=== PATIENT | female | born 1940 | race Asian ===

== ENCOUNTER → 2017-08-21 | Outpatient (CLI) | payer OTHER, MEDICAID | LOC: FIMAGING 08:28 | PROVIDERS: ATTEND Family Medicine | DX: G31.9 Degenerative disease of nervous system, unspecified (principal); R94.02 Abnormal brain scan; M48.02 Spinal stenosis, cervical region; R41.3 Other amnesia; F03.90 Unspecified dementia, unspecified severity, without behavioral disturbance, psychotic disturbance, mood disturbance, and anxiety ==

== ENCOUNTER 2017-10-18 09:58 | Observation (INO) | payer OTHER, MEDICAID ==
--- NOTE | 2017-10-18 10:16 | EDPHY ---
H & P Time Seen by Provider: 10/18/17 10:01 HPI/ROS: CHIEF COMPLAINT: Wrist pain, syncope HISTORY OF PRESENT ILLNESS: Patient sent from Dr. Cintron's office after 2 syncopal episodes in his office. Patient was at the office to have an evaluation of her left calf pain. She has had pain there for approximately 1 week. She recently started Aricept and Dr. Cintron thought that it may be side effect of the medication but was going to do an ultrasound to rule out DVT. While patient was waiting for orders to be placed she went to the bathroom and after urinating, she got dizzy, lightheaded and had syncopal episode in the bathroom injuring her right wrist. Dr. Cintron did go to her aid and when she was being helped up she had another syncopal episode and was described as being "out"for 15-20 seconds. On my evaluation patient states that she has right wrist pain. She denies numbness or tingling distally. Onset of pain was immediately after her fall. She also has left calf pain that has been present for approximately 1 week. It is diffuse to the posterior left calf. Mild in nature but persistent. She denies injury to the left calf. She has had no recent travel. She denies chest pain, shortness of breath, dizziness currently. She has no headache. She has had no recent illnesses. She denies urinary symptoms, nausea, vomiting , diarrhea or abdominal pain. She denies other injuries from the fall. REVIEW OF SYSTEMS: Constitutional: No fever, no chills. Eyes: No discharge. ENT: No sore throat. Cardiovascular: No chest pain, no palpitations. Respiratory: No cough, no shortness of breath. Gastrointestinal: No abdominal pain, no vomiting. Genitourinary: No dysuria. Musculoskeletal: No back pain. Skin: No rashes. Neurological: No headache. General Appearance: Alert, no distress. Eyes: Pupils equal and round no pallor or injection. ENT, Mouth: Mucous membranes moist. Respiratory: There are no retractions, lungs are clear to auscultation. Cardiovascular: Regular rate and rhythm. Gastrointestinal: Abdomen is soft and nontender, no masses, bowel sounds normal. Neurological: Awake, alert, oriented to self, place, month. At baseline. No focal neurologic deficits. Skin: Warm and dry, no rashes. Musculoskeletal: Neck is supple nontender. No tenderness to palpation along T , L, S spine. Right wrist with deformity, swelling, distal intact. Range of motion limited by pain. Left calf with mild tenderness to palpation posteriorly , no edema no erythema. Psychiatric: Patient is oriented X 3, there is no agitation. Medical/surgical history: History of diabetes type 2, hepatitis-C, hypothyroidism, dementia, vitamin B12 deficiency. Social history: No smoking, alcohol, drugs. Originally from [place], speaks Yemeni, Cantonese. Constitutional: Initial Vital Signs Temperature (C) 36.6 C 10/18/17 10:09 Heart Rate 52 L 10/18/17 10:09 Respiratory Rate 18 10/18/17 10:09 Blood Pressure 111/56 L 10/18/17 10:09 O2 Sat (%) 99 10/18/17 10:09 O2 Delivery Mode Room Air Allergies/Adverse Reactions: No Known Allergies Allergy (Unverified 10/18/17 10:09) Medical Decision Making - Diagnostics EKG Interpretation: EKG shows sinus rhythm with a first-degree AV block and a rate of 52. No acute ST-T changes to suggest ischemia or infarct. See trace master. Imaging Results: Imaging Impressions Chest X-Ray 10/18/17 10:11 Impression: Clear lungs. No acute process. Wrist X-Ray 10/18/17 10:12 Impression: Comminuted Colles' fracture with dorsal angulation. Imaging: I viewed and interpreted images myself ED Course/Re-evaluation: 11:03 Discussed with MELANIE Sinha, for hospitalist service. 11:27 a.m. D-dimer back at 0.571, less than age adjusted cut off for further thromboembolic imaging. 11:[address] Roc Landry, trauma Services, alerted to the patient needing brief eval in the emergency department prior to admission. 12:[address] Keven To, ED physician, pending transfer through emergency department for trauma eval. 12:[address] Quan, orthopedics. Differential Diagnosis: Differential diagnosis for syncope includes arrhythmia, dehydration, acute coronary syndrome, hypoglycemia, vertigo, other cardiopulmonary cause. After evaluation unclear cause of her syncope and patient will be admitted for further evaluation. No evidence of acute coronary syndrome, ST-elevation NC, troponin leak. D-dimer testing performed and her level was below age related cut off for positivity. TSH pending. Patient also with right wrist fracture, likely surgical, discussed with Orthopedics and they will see patient at [facility] during her admission. Splinted in the emergency department. I personally supervised splinting. Hemodynamically stable for transfer to [facility]. - Data Points Laboratory Results: Laboratory Results 10/18/17 10:20 10/18/17 10/18/17 10/18/17 10:28 10:28 10:21 WBC RBC Hgb Hct MCV MCH MCHC RDW Plt Count MPV Neut % (Auto) Lymph % (Auto) [place] % (Auto) Eos % (Auto) Baso % (Auto) Nucleat RBC Rel Count Absolute Neuts (auto) Absolute Lymphs (auto) Absolute Monos (auto) Absolute Eos (auto) Absolute Basos (auto) Absolute Nucleated RBC Immature Gran % Immature Gran # Smear Review By POC Sodium 136 mEq/L mEq/L (135-145) POC Potassium 4.3 mEq/L mEq/L (3.3-5.0) POC Chloride 106.0 mEq/L mEq/L (97-110) POC Total CO2 28 mEq/L mEq/L (22-31) POC BUN 13 mg/dL mg/dL (7-23) POC Creatinine 0.6 mg/dL mg/dL (0.6-1.0) POC Glucose 179 mg/dL H mg/dL 174 mg/dL H mg/dL (70-100) (70-100) POC Calcium 9.4 mg/dL mg/dL (8.5-10.4) POC Total Bilirubin 0.7 mg/dL mg/dL (0.1-1.4) POC AST 29 IU/L IU/L (14-46) POC ALT 20 IU/L IU/L (9-52) POC Alk Phosphatase 54 IU/L IU/L (38-126) POC Troponin I 0.00 ng/mL ng/mL (0.00-0.08) POC Total Protein 7.3 g/dL g/dL (6.3-8.2) POC Albumin 3.8 g/dL g/dL (3.5-5.0) TSH 10/18/17 10/18/17 10:20 10:20 WBC 5.57 10^3/uL 10^3/uL (3.80-9.50) RBC 5.48 10^6/uL H 10^6/uL (4.18-5.33) Hgb 11.6 g/dL L g/dL (12.6-16.3) Hct 37.1 % L % (38.0-47.0) MCV 67.7 fL L fL (81.5-99.8) MCH 21.2 pg L pg (27.9-34.1) MCHC 31.3 g/dL L g/dL (32.4-36.7) RDW 14.6 % % (11.5-15.2) Plt Count 159 10^3/uL 10^3/uL (150-400) MPV TNP Neut % (Auto) 45.3 % % (39.3-74.2) Lymph % (Auto) 43.8 % % (15.0-45.0) Treut[place] % (Auto) 7.4 % % (4.5-13.0) Eos % (Auto) 2.7 % % (0.6-7.6) Baso % (Auto) 0.4 % % (0.3-1.7) Nucleat RBC Rel Count 0.0 % % (0.0-0.2) Absolute Neuts (auto) 2.53 10^3/uL 10^3/uL (1.70-6.50) Absolute Lymphs (auto) 2.44 10^3/uL 10^3/uL (1.00-3.00) Absolute Monos (auto) 0.41 10^3/uL 10^3/uL (0.30-0.80) Absolute Eos (auto) 0.15 10^3/uL 10^3/uL (0.03-0.40) Absolute Basos (auto) 0.02 10^3/uL 10^3/uL (0.02-0.10) Absolute Nucleated RBC 0.00 10^3/uL 10^3/uL (0-0.01) Immature Gran % 0.4 % % (0.0-1.1) Immature Gran # 0.02 10^3/uL 10^3/uL (0.00-0.10) Smear Review By Pending POC Sodium POC Potassium POC Chloride POC Total CO2 POC BUN POC Creatinine POC Glucose POC Calcium POC Total Bilirubin POC AST POC ALT POC Alk Phosphatase POC Troponin I POC Total Protein POC Albumin TSH Pending Medications Given: Discontinued Medications Fentanyl (Sublimaze) 50 mcg IVP EDNOW ONE Stop: 10/18/17 11:10 Last Admin: 10/18/17 11:11 Dose: 50 mcg Sodium Chloride (Ns) 500 mls @ 0 mls/hr IV EDNOW ONE; Wide Open PRN Reason: Protocol Stop: 10/18/17 11:10 Last Admin: 10/18/17 11:11 Dose: 500 mls Point of Care Test Results: Chemistry 10/18/17 10/18/17 10/18/17 10:28 10:28 10:21 POC Sodium 136 mEq/L mEq/L (135-145) POC Potassium 4.3 mEq/L mEq/L (3.3-5.0) POC Chloride 106.0 mEq/L mEq/L (97-110) POC Total CO2 28 mEq/L mEq/L (22-31) POC BUN 13 mg/dL mg/dL (7-23) POC Creatinine 0.6 mg/dL mg/dL (0.6-1.0) POC Glucose 179 mg/dL H mg/dL 174 mg/dL H mg/dL (70-100) (70-100) POC Calcium 9.4 mg/dL mg/dL (8.5-10.4) POC Total Bilirubin 0.7 mg/dL mg/dL (0.1-1.4) POC AST 29 IU/L IU/L (14-46) POC ALT 20 IU/L IU/L (9-52) POC Alk Phosphatase 54 IU/L IU/L (38-126) POC Troponin I 0.00 ng/mL ng/mL (0.00-0.08) POC Total Protein 7.3 g/dL g/dL (6.3-8.2) POC Albumin 3.8 g/dL g/dL (3.5-5.0) D-Dimer D-Dimer Collection Date 10/18/17 D-Dimer Collection Time 10:25 D-Dimer (ng/ml) 571 Departure - Departure
--- NOTE | 2017-10-18 10:23 | CPEKG ---
Heart Rate: 52 RR Interval: 1154 P-R Interval: 212 QRSD Interval: 84 QT Interval: 468 QTC Interval: 436 P Hudson: 54 QRS Hudson: 31 T Wave Hudson: 45 EKG Severity - ABNORMAL ECG - EKG Impression: SINUS RHYTHM EKG Impression: CONSIDER LEFT VENTRICULAR HYPERTROPHY EKG Impression: ANTERIOR Q WAVES, POSSIBLY DUE TO LVH Electronically Signed By: Shayla Fields 18-Oct-2017 15:02:12
[2017-10-18] MEDS ORDERED: fentaNYL 100 MCG/2 ML INJ IVP ONE (11:09)
[2017-10-18] MEDS ORDERED: NS 500 ML IV ONE (11:09)
[2017-10-18 12:00] LABS: PLATELET COUNT 159 10^3/uL (150-400)
[2017-10-18] MEDS ORDERED: fentaNYL 100 MCG/2 ML INJ ONE (13:00)
[2017-10-18] MEDS ORDERED: PROMETHAZINE HCL 25 MG/ML INJ IVP PRN (17:06)
[2017-10-18] MEDS ORDERED: ONDANSETRON DISINTEGRATING 4 MG TAB PO PRN (17:06)
[2017-10-18] MEDS ORDERED: oxyCODONE IR 5 MG TAB PO PRN (17:06)
[2017-10-18] MEDS ORDERED: PROMETHAZINE HCL 25 MG TAB PO PRN (17:06)
[2017-10-18] MEDS ORDERED: ONDANSETRON 4 MG/2 ML VIAL IVP PRN (17:06)
[2017-10-18] MEDS ORDERED: ACETAMINOPHEN 325 MG TAB PO PRN (17:06)
[2017-10-18] MEDS ORDERED: D5W 1/2 NS W/ 20 KCl/L 1,000 ML IV SCH (17:15)
[2017-10-18] MEDS ORDERED: PRAVASTATIN SODIUM 20 MG TAB PO SCH (18:00)
--- NOTE | 2017-10-18 18:11 | PDGENHP ---
History and Physical - Chief Complaint Acute syncope - History of Present Illness PCP: Dr. Cintron HPI: 77 yo F p/w acute syncope characterized as unresponsiveness, limp appearance w/ onset of symptoms after the patient had some associated dizziness upon standing s/p urinating, resulting in witnessed fall, trauma to RUE outstretched arm, and a duration of 15-20 seconds of unresponsiveness/limp. The symptoms occurred in the context of the patient seen her primary care provider for evaluation of pain located in her left calf, with onset of that symptom approximately 1 week ago and duration persistent thereafter. The patient did not experience any trauma to her left lower extremity, and she reports that the pain has been escalating over this interval at home. She denies taking any medications to treat the pain, and after she had been seen by her primary care provider, a lower extremity ultrasound has been ordered, and the patient went to go use the restroom. After the patient use the restroom and she stood up to leave the restroom, she experienced the aforementioned syncopal episode. The patient denies any precipitating palpitations or chest pain, and her daughter reports that she has not had any syncopal episodes for the past 2 years. Approximately 2 years ago she did have 1 syncopal episode which occurred while she was eating, and did not recur. She otherwise denies any infectious symptoms at this time. History Information - Allergies/Home Medication List Allergies/Adverse Reactions: No Known Allergies Allergy (Verified 10/18/17 13:30) Home Medications: Acetaminophen [Tylenol 325mg (*)] 325 mg PO Q6HRS PRN 10/18/17 [Last Taken Unknown] C/E/Zn/Cu/OM3/DHA/EPA/LUT/ZEAX [Preservision Areds 2 Softgel] 1 each PO DAILY [Last Taken Unknown] Cyanocobalamin [Vitamin B12 (*)] 1,000 mcg PO DAILY 10/18/17 [Last Taken Unknown ] Donepezil HCl [Aricept 5 MG (*)] 10 mg PO HS 10/18/17 [Last Taken 10/16/17] Lisinopril [Zestril 10 mg (*)] 10 mg PO DAILY 10/18/17 [Last Taken 10/18/17] Simvastatin [Zocor] 10 mg PO DAILY18 10/18/17 [Last Taken 10/17/17] glipiZIDE [Glipizide] 5 mg PO BIDMEAL 10/18/17 [Last Taken 10/17/17 18:00] metFORMIN HCL [Glucophage 500 mg (*)] 500 mg PO BIDMEAL 10/18/17 [Last Taken 18:00] I have personally reviewed and updated: family history, medical history, social history, surgical history - Past Medical History diabetes type 2 (Last hemoglobin A1c 7.1%) Additional medical history: Hypothyroidism with TSH 2.5 in July of 2017. Dementia. Previous syncopal episode 2016 - Surgical History Reports: no pertinent surgical hx - Family History Additional family history: No recent sick family contacts - Social History Smoking Status: Never smoked Alcohol Use: None Drug Use: None Additional social history: Independent ADLs comma reportedly active physical baseline, lives with daughter Review of Systems Review of Systems: ROS: 10pt was reviewed & negative except for what was stated in HPI & below Muscolosketal: Reports: other (Right wrist pain) Neurological: Reports: other (Syncope) Physical Exam Physical Exam: Temp Pulse Resp BP Pulse Ox 36.2 C 63 14 155/82 H 97 10/18/17 15:32 10/18/17 17:30 10/18/17 15:32 10/18/17 17:30 10/18/17 15:32 Constitutional: no apparent distress, appears nourished, not in pain Eyes: PERRL, anicteric sclera, EOMI Ears, Nose, Mouth, Throat: moist mucous membranes, hearing normal, ears appear normal, no oral mucosal ulcers Cardiovascular: regular rate and rhythym, no murmur, rub, or gallop, other (Cap refill in her distal right fingers is 1 sec), No edema Respiratory: no respiratory distress, no rales or rhonchi, clear to auscultation Gastrointestinal: normoactive bowel sounds, soft, non-tender abdomen, no palpable masses Genitourinary: no bladder fullness, no bladder tenderness Musculoskeletal: other (No tenderness over the right shoulder in the posterior shoulder or right sub acromioclavicular joint) Neurologic: AAOx3, sensation intact bilaterally (Distal right fingers), No weakness (Full movement in distal right fingers) Psychiatric: interacting appropriately, not anxious, not encephalopathic, thought process linear Lab Data & Imaging Review 10/18/17 10:20 WBC 5.57 10^3/uL (3.80-9.50) 10/18/17 10:20 RBC 5.48 10^6/uL (4.18-5.33) H 10/18/17 10:20 Hgb 11.6 g/dL (12.6-16.3) L 10/18/17 10:20 Hct 37.1 % (38.0-47.0) L 10/18/17 10:20 MCV 67.7 fL (81.5-99.8) L 10/18/17 10:20 MCH 21.2 pg (27.9-34.1) L 10/18/17 10:20 MCHC 31.3 g/dL (32.4-36.7) L 10/18/17 10:20 RDW 14.6 % (11.5-15.2) 10/18/17 10:20 Plt Count 159 10^3/uL (150-400) 10/18/17 10:20 MPV TNP 10/18/17 10:20 Neut % (Auto) 45.3 % (39.3-74.2) 10/18/17 10:20 Lymph % (Auto) 43.8 % (15.0-45.0) 10/18/17 10:20 Camp % (Auto) 7.4 % (4.5-13.0) 10/18/17 10:20 Eos % (Auto) 2.7 % (0.6-7.6) 10/18/17 10:20 Baso % (Auto) 0.4 % (0.3-1.7) 10/18/17 10:20 Nucleat RBC Rel Count 0.0 % (0.0-0.2) 10/18/17 10:20 Absolute Neuts (auto) 2.53 10^3/uL (1.70-6.50) 10/18/17 10:20 Absolute Lymphs (auto) 2.44 10^3/uL (1.00-3.00) 10/18/17 10:20 Absolute Monos (auto) 0.41 10^3/uL (0.30-0.80) 10/18/17 10:20 Absolute Eos (auto) 0.15 10^3/uL (0.03-0.40) 10/18/17 10:20 Absolute Basos (auto) 0.02 10^3/uL (0.02-0.10) 10/18/17 10:20 Absolute Nucleated RBC 0.00 10^3/uL (0-0.01) 10/18/17 10:20 Immature Gran % 0.4 % (0.0-1.1) 10/18/17 10:20 Immature Gran # 0.02 10^3/uL (0.00-0.10) 10/18/17 10:20 Platelet Estimate ADEQUATE (ADEQ) 10/18/17 10:20 Microcytic Cells 1+ H 10/18/17 10:20 Elliptocytes 1+ H 10/18/17 10:20 Schistocytes 2+ H 10/18/17 10:20 POC Sodium 136 mEq/L (135-145) 10/18/17 10:28 POC Potassium 4.3 mEq/L (3.3-5.0) 10/18/17 10:28 POC Chloride 106.0 mEq/L (97-110) 10/18/17 10:28 POC Total CO2 28 mEq/L (22-31) 10/18/17 10:28 POC BUN 13 mg/dL (7-23) 10/18/17 10:28 POC Creatinine 0.6 mg/dL (0.6-1.0) 10/18/17 10:28 POC Glucose 132 mg/dL (70-100) H 10/18/17 17:34 POC Calcium 9.4 mg/dL (8.5-10.4) 10/18/17 10:28 POC Total Bilirubin 0.7 mg/dL (0.1-1.4) 10/18/17 10:28 POC AST 29 IU/L (14-46) 10/18/17 10:28 POC ALT 20 IU/L (9-52) 10/18/17 10:28 POC Alk Phosphatase 54 IU/L (38-126) 10/18/17 10:28 POC Troponin I 0.00 ng/mL (0.00-0.08) 10/18/17 10:28 POC Total Protein 7.3 g/dL (6.3-8.2) 10/18/17 10:28 POC Albumin 3.8 g/dL (3.5-5.0) 10/18/17 10:28 TSH 14.300 uIU/mL (0.465-4.680) H 10/18/17 10:20 Visualized and Interpreted Chest x-ray results: Yes Chest X-Ray results: no infiltrate Visualized and Interpreted EKG results: Yes EKG Interpretation: Positive for: other (Normal sinus rhythm with Q-wave in lead 3, LVH, poor R-wave progression in lead V2) Assessment & Plan Assessment: 77-year-old female presents with acute syncope resulting in traumatic right wrist fracture Plan: 1. Syncope. Acute, new problem this provider, further workup indicated. Suspect this occurred secondary to a vasovagal episode in the setting of low- grade weakness from under treated hypothyroidism -given her age and upcoming surgery, check echocardiogram, carotid ultrasounds, monitor on telemetry overnight -given her unilateral calf tenderness, check D-dimer to rule out DVT, repeat troponin level -get orthostatics -get PT and OT assessments to assure she will be safe for discharge home tomorrow 2. Hypothyroidism. Chronic, last TSH was 08/06/2017 and was 2.5, per daughter, the patient was on levothyroxine at that time, the daughter believe she is still taking it in the morning on an empty stomach but review of her home medications demonstrates no evidence of levothyroxine -initiate 75 mcg daily, recommend repeating TSH level in 4-6 weeks -this should not delay of preclude surgery 3. Right wrist fracture. X-ray demonstrates a comminuted Colles fracture with dorsal angulation -discussed with Dr. Dm Quan, he reports to me that the patient should be taken to surgery in 1 week after swelling subsides -patient's RCRI score is 0, conferring a 0.5% perioperative cardiovascular risk for morbidity or mortality, rendering patient low cardiovascular risk for intermediate orthopedic risk surgery -continue splint -continue pain medication 4. Dementia. Chronic encephalopathy, reviewed outside records including 2017 brain MRI read by Dr. Bobby Kumar, reports temporal lobe atrophy, and calcification versus small hemorrhage in the right temporal area with some cervical stenosis -I doubt that the patient's underlying dementia or cervical stenosis played a role in her fall but the patient was recently initiated on Aricept and her primary care provider has decided to discontinue Aricept as a possible contributing medication to her syncope 5. Diabetes. Controlled on oral medications, continue Diet. Diabetic Prophylaxis. Moderate risk patient, Lovenox 40 Code. Full, daughter is MD POA Disposition. Anticipated discharge 10/19, pending further workup as outlined above.
[2017-10-18] MEDS: metFORMIN HCL 500 MG TAB PO SCH (18:17)
[2017-10-18] MEDS: glipiZIDE 5 MG TAB PO SCH (18:17)
[2017-10-19 05:36] LABS: PLATELET COUNT 157 10^3/uL (150-400)
[2017-10-19] MEDS ORDERED: LEVOTHYROXINE 75 MCG TAB PO SCH (06:00)
--- NOTE | 2017-10-19 06:02 | SOAPPROG ---
SOAP Progress Note Assessment/Plan: Assessment: 77 female with multiple syncopal episodes this time sustaining rt wrist fx no other injuries heent - cor rr chest clear and nontender extrem ok neuro physiologic imp: major issue is syncope, incidental wrist fx Plan:ortho consult/ admit to medicine for syncope work up 10/19/17 05:58 Objective: Vital Signs Temp Pulse Resp BP Pulse Ox 36.6 C 64 20 151/78 H 98 10/19/17 03:58 10/19/17 03:58 10/19/17 03:58 10/19/17 03:58 10/19/17 03:58 Laboratory Results 10/19/17 04:55 10/19/17 04:55 10/17/17 10/18/17 10/19/17 05:59 05:59 05:59 Intake Total 500 Balance 500 ICD10 Worksheet Patient Problems: Problems Problem Status Onset Wrist fracture Acute - ICD10 Problem Qualifiers (1) Wrist fracture Qualifiers: Encounter type: initial encounter Fracture type: closed Laterality: right Qualified Code(s): S62.101A - Fracture of unspecified carpal bone, right wrist, initial encounter for closed fracture
[2017-10-19] MEDS ORDERED: glipiZIDE 5 MG TAB PO SCH (07:00)
[2017-10-19] MEDS ORDERED: metFORMIN HCL 500 MG TAB PO SCH (07:00)
[2017-10-19] MEDS ORDERED: IOPAMIDOL (ISOVUE 370) 100 ML BTL IV ONE (08:33)
[2017-10-19] MEDS ORDERED: LISINOPRIL 10 MG TAB PO SCH (09:00)
[2017-10-19] MEDS ORDERED: CYANO/VITAMIN B12 1000 MCG TAB PO SCH (09:00)
[2017-10-19] MEDS ORDERED: PRESERVISION AREDS2 FORMULA EYE VIT 1 EACH PO SCH (09:00)
[2017-10-19] MEDS ORDERED: ENOXAPARIN 40 MG/0.4 ML SYR SC SCH (09:00)
[2017-10-19] MEDS: glipiZIDE 5 MG TAB PO SCH (09:11)
[2017-10-19] MEDS: metFORMIN HCL 500 MG TAB PO SCH (09:12)
[2017-10-19 09:13] VITALS: BP 149/85
--- NOTE | 2017-10-19 12:44 | ECHO ---
[email or web address] [address] [address] Main: [phone] Fax: Transthoracic Echocardiogram Name: CHARBEL LAWRENCE MR#: [id number] Study Date: 10/19/2017 Study Time: 11:50 AM Date of : 1940 Age: 77 year(s) Height: 154.9 cm (61 in.) Weight: 48.53 kg (107 lb.) BSA: 1.45 m2 Gender: Female Examination: Echo Indication: Cardiac: syncope Image Quality: Contrast: Requested by: Vel Gomez BP: 149 mmHg/85 mmHg Heart Rate: Rhythm: Indication: Cardiac: syncope Procedure Staff Gauger Chief Delivery: Siria Diaz [facility] Reading Physician: Fransico Light MD Requesting Provider: Conclusions: 1)Normal LV size and systolic function with a LVEF of 64% and normal wall motions. 2)Mild AI noted with no . 3)Mild MR without MV prolapse. 4)Mild TR and PI noted. 5)Unable to accurately assess PA pressures secondary to inadequate TR jet velocity. Measurements: Chambers Valvular Assessment AV/MV Valvular Assessment TV/PV Normal Normal Normal Name Value Range Name Value Range Name Value Range Ao Missy (MM): 3.3 cm (2.2 cm-3.7 AV Vmax: 1.00 m/s (1 m/s-1.7 cm) m/s) IVSd (2D): 0.6 cm (0.6 cm-1.1 AV meanP mmHg ( - ) cm) MV E Vmax: 0.63 m/s ( - ) LVDd (2D): 4.2 cm (3.9 cm-5.3 MV A Vmax: 0.77 m/s ( - ) cm) MV E/A: 0.82 ( - ) LVDs (2D): 2.5 cm (2.1 cm-4 cm) LVPWd (2D): 0.8 cm ( - ) LVEF (MOD4): 64 % (>=55 %) Continued Measurements: Chambers Valvular Assessment AV/MV Name Value Name Value LADs: 2.7 cm MV E' Septal: 0.06 m/s MV E/E' Septal: 10.20 MV E/E' Lateral: 11.10 Patient: CHARBEL LAWRENCE Study Date: 10/19/2017 Page 1 of 2 11:50 AM Additional Vessels Name Value Ao Ascendin.6 cm Findings: Left Ventricle: Normal size left ventricle. No LV hypertrophy. Normal global systolic LV function. EF is 64 %. No regional wall motion abnormality. Right Ventricle: Normal size right ventricle. Left Atrium: The left atrium is normal in size. Right Atrium: The right atrium is normal in size. Mitral Valve: The mitral valve is normal in appearance and function. Mild mitral valve regurgitation is present. Aortic Valve: The aortic valve is normal in appearance and function. Mild aortic valve regurgitation is present. Tricuspid Valve: The tricuspid valve is normal in appearance and function. Mild tricuspid regurgitation is present. Pulmonic Valve: The pulmonic valve is normal in appearance and function. Mild pulmonic valve regurgitation is noted. Aorta: The aorta is normal. Pericardium: No pericardial effusion. (No Signature Object) Patient: CHARBEL LAWRENCE Study Date: 10/19/2017 Page 2 of 2 11:50 AM [id number]
--- NOTE | 2017-10-19 14:34 | GDS ---
[f rep st] DISCHARGE SUMMARY DISCHARGE DIAGNOSES: 1. Syncope. 2. Right wrist fracture. 3. Hypothyroidism. 4. Dementia. 5. Diabetes. STUDIES AND PROCEDURES DONE: Carotid Doppler, chest x-ray, wrist x-ray, EKG, echocardiogram, CT gabriel o of the chest, bilateral lower extremity ultrasounds. PHYSICAL EXAMINATION: GENERAL: The patient is alert. VITAL SIGNS: Afebrile at 36.6, pulse is 64, respiratory rate is 20, blood pressure is 149/85. She is saturating 92% on room air. I have seen and evaluated the patient on the day of discharge. HOSPITAL COURSE: The patient is a 77-year-old female presenting to the emergency room after sufferin g a syncopal episode at the doctor's office. She was evaluated and diagnosed with: 1. Syncope. This is likely a vasovagal event. The patient did receive thorough evaluation during t his hospitalization. She was monitored on telemetry and received an echocardiogram, carotid ultrasou nd, CT angio of the chest, bilateral lower extremity Dopplers, and laboratory evaluation, with no bernadette ology being identified for her syncope. The patient was in the bathroom when she did have the syncop al episode. Physical Therapy and Occupational Therapy have evaluated her prior to disposition. 2. Right wrist fracture. This is Colles fracture with traumatic secondary to the patient's syncopal episode. She will require surgical intervention by Dr. Quan later in the week after the swellin g has improved. 3. Hypothyroidism. The patient's TSH is 14. She has not likely been taking her Synthroid. I have provided her prescription at the time of disposition. Will require followup in the outpatient [facility] in 4-6 weeks. 4. Dementia. Per the daughter, the patient's mentation is at baseline. 5. Diabetes. This is controlled on oral medications. Will be followed by her primary care physicia n. 6. Coronary artery disease. During this patient's hospitalization, CT angio showed significant angelic nary plaque. This is to be further evaluated by her primary care physician in the outpatient setting with further recommendations to be made. DISPOSITION: The patient will be discharged to home with her daughter. FOLLOWUP: Followup will be with Dr. Quan for anticipated surgery as well as follow up with Dr. Michelle Cintron. DISCHARGE MEDICATIONS: The patient has been provided a prescription for Levaquin. /[id number]/MODL
== END 2017-10-19 14:10 | disposition home or self-care (01) ==
LOC: CED 09:58 → CEDHOLD 11:03 → F3N 15:20
PROVIDERS: ADMIT Internal Medicine; ATTEND Internal Medicine
DX: R55 Syncope and collapse (principal); S52.531A Colles' fracture of right radius, initial encounter for closed fracture; E03.9 Hypothyroidism, unspecified; F03.90 Unspecified dementia, unspecified severity, without behavioral disturbance, psychotic disturbance, mood disturbance, and anxiety; E11.9 Type 2 diabetes mellitus without complications
CPT/HCPCS: 71045; 71275; 73110; 93005; 93306; 93880; 93970; 97165; G0378; G8987; G8988; G8989; J1650; J3010; Q9967; 80053-PO; 84484-PO; 96374

== ENCOUNTER 2017-10-25 06:49 | Day surgery (SDC) | payer OTHER, MEDICAID ==
--- NOTE | 2017-10-24 15:58 | GHP ---
[f rep st] PREOP HISTORY AND PHYSICAL DATE OF ADMISSION: 10/25/2017 Date of planned procedure is 10/25/2017. PLANNED PROCEDURE: Open reduction and internal fixation, distal radius fracture. HISTORY OF PRESENT ILLNESS: The patient is a 77-year-old female who had a syncopal episode on September [id number], fell, and sustained a distal radius fracture of her right wrist. She was initially seen at [facility] Emergency Room and transferred to [facility] for syncopal workup, was admitted, a nd discharged home. She now returns to the hospital for definitive fixation of her fracture. She lopez s been splinted. PRIOR MEDICAL HISTORY: Type 2 diabetes, hypothyroidism, dementia, syncope. MEDICATIONS: Metformin, glipizide, simvastatin, lisinopril, Aricept, vitamin B12. ALLERGIES: No known allergies. SOCIAL HISTORY: Does not smoke. Does not use alcohol. Lives with her daughter here in town. Indep endent with ADLs. REVIEW OF SYMPTOMS: No shortness of breath or chest pain. Otherwise, review of systems unremarkable . PHYSICAL EXAM: VITAL SIGNS: Blood pressure is 145/76. Pulse is 60. Heart rate 14 on room air. GE NERAL: She is alert and oriented x3. Her daughter does interpret for her. HEENT: Normocephalic, a traumatic. Extraocular muscles intact. NECK: Supple. There is no lymphadenopathy. No JVD. CHEST : Clear to auscultation. CARDIOVASCULAR: Regular rate and rhythm. ABDOMEN: Soft, nontender, nond istended. EXTREMITIES: Right wrist is in a sugar-tong splint; it is fitting appropriately. She is moving her fingers well. Brisk capillary refill to all her fingers. Sensation to light touch is int act. IMAGING: X-rays, 3 views, of the wrist are reviewed. They show a comminuted intraarticular distal r adius fracture with shortening and dorsal angulation. ASSESSMENT: Right distal radius fracture with comminution. PLAN: I recommend proceeding with an open reduction and internal fixation of the fracture. This was described in detail. Risks including infection, blood clots, possibility of nerve or blood vessel d amage were all discussed. She understands these risks. We also talked about the need for therapy po stoperatively as possibility of wrist stiffness with a complex fracture like this is a good possibili ty. They understand the risks, wish to proceed. We will plan on surgery Saturday at [facility]. /[id number]/MODL
[2017-10-25] MEDS ORDERED: ceFAZolin 2 GM/DEXTROSE 100 ML IV ONE (07:26)
[2017-10-25] MEDS ORDERED: LR 1,000 ML IV ONE (07:29)
[2017-10-25] MEDS ORDERED: BUPIVACAINE/EPI 0.5% 30 ML SDV ONE (07:41)
--- NOTE | 2017-10-25 08:07 | PDHPUP ---
History & Physical Update H&P update statement: This history and physical update is based on an assessment of the patient which was completed after admission or registration (within 24 hours), but prior to the surgery/procedure. H&P update: H&P reviewed & patient examined, no change in patient's condition since H&P completed
--- NOTE | 2017-10-25 08:14 | PDANEPAE ---
ANE History of Present Illness ORIF L wrist ANE Past Medical History - Cardiovascular History Hx Hypertension: Yes Hx Arrhythmias: No Hx Chest Pain: No Hx Coronary Artery / Peripheral Vascular Disease: Yes Hx CHF / Valvular Disease: No Hx Palpitations: No Cardiovascular History Comment: CAD by CT angio - Pulmonary History Hx COPD: No Hx Asthma/Reactive Airway Disease: No Hx Recent Upper Respiratory Infection: No Hx Oxygen in Use at Home: No Hx Sleep Apnea: No Sleep Apnea Screening Result - Last Documented: Negative - Neurologic History Hx Cerebrovascular Accident: No Hx Seizures: No Hx Dementia: Yes Neurologic History Comment: RECENT SYNCOPE one week ago and two years ago. W/u 1 week ago suggestive of vasavagal episode - Endocrine History Hx Diabetes: Yes Hypothyroid: Yes Hyperthyroid: No Obesity: no Endocrine History Comment: DM for 10 years - METFORMIN/GLIPIZIDE. Thyroid replacement dose increased last week - Renal History Hx Renal Disorders: No - Liver History Hx Hepatic Disorders: No - Neurological & Psychiatric Hx Hx Neurological and Psychiatric Disorders: No Neurological / Psychiatric History Comment: DEMENTIA - Cancer History Hx Cancer: No - Congenital Disorder History Hx Congenital Disorders: No - GI History GERD: no Hx Gastrointestinal Disorders: No - Other Health History Other Health History: PAST MILD ANEMIA - Chronic Pain History Chronic Pain: No - Surgical History Prior Surgeries: NONE ANE Review of Systems Review of Systems: - Exercise capacity METS (RN): 4 METS ANE Patient History - Allergies Allergies/Adverse Reactions: No Known Allergies Allergy (Verified 10/18/17 13:30) - Home Medications Home Medications: Acetaminophen [Tylenol 325mg (*)] 325 mg PO Q6HRS PRN 10/18/17 [Last Taken 2 Days Ago ~10/23/17] C/E/Zn/Cu/OM3/DHA/EPA/LUT/ZEAX [Preservision Areds 2 Softgel] 1 each PO DAILY [Last Taken 2 Days Ago ~10/23/17] Cyanocobalamin [Vitamin B12 (*)] 1,000 mcg PO DAILY 10/18/17 [Last Taken 2 Days Ago ~10/23/17] Donepezil HCl [Aricept 5 MG (*)] 10 mg PO HS 10/18/17 [Last Taken 1 Week Ago ~] Lisinopril [Zestril 10 mg (*)] 10 mg PO DAILY 10/18/17 [Last Taken 10/25/17 05: 30] Simvastatin [Zocor] 10 mg PO DAILY18 10/18/17 [Last Taken 10/24/17] glipiZIDE [Glipizide] 5 mg PO BIDMEAL 10/18/17 [Last Taken 10/24/17] metFORMIN HCL [Glucophage 500 mg (*)] 500 mg PO BIDMEAL 10/18/17 [Last Taken 05/12] - NPO status NPO Since - Liquids (Date): 10/25/17 NPO Since - Liquids (Time): 05:30 NPO Since - Solids (Date): 10/24/17 NPO Since - Solids (Time): 21:30 - Smoking Hx Smoking Status: Never smoked Marijuana use: No - Alcohol Use Alcohol Use: None - Family Anes Hx Family Anes Hx: none Family Hx Anesthesia Complications: UNK ANE Labs/Vital Signs - Vital Signs Blood Pressure: 155/70 Heart Rate: 60 Respiratory Rate: 14 O2 Sat (%): 97 Height: 154.94 cm Weight: 48.534 kg ANE Physical Exam - Airway Neck exam: FROM Mallampati Score: Class 1 Mouth exam: dentures - Pulmonary Pulmonary: clear to auscultation - Cardiovascular Cardiovascular: regular rate and rhythym - ASA Status ASA Status: III ANE Anesthesia Plan Anesthesia Plan: GA w LMA (Increased risk of POCD, delirium discussed.)
[2017-10-25] MEDS ORDERED: fentaNYL 100 MCG/2 ML INJ ONE ×4 (08:30→10:29)
[2017-10-25] MEDS ORDERED: DEXAMETHASONE 4 MG/ML VIAL ONE (08:30)
[2017-10-25] MEDS ORDERED: PROPOFOL 200 MG/20 ML VIAL ONE ×2 (08:30→09:03)
[2017-10-25] MEDS ORDERED: NALOXONE HCL 0.4 MG/ML INJ IVP PRN (09:24)
[2017-10-25] MEDS ORDERED: oxyCODONE IR 5 MG TAB PO PRN (09:24)
[2017-10-25] MEDS ORDERED: ONDANSETRON 4 MG/2 ML VIAL ONE (09:25)
--- NOTE | 2017-10-25 09:28 | POSTOPPROG ---
Post Op Note Date of Operation: 10/25/17 Surgeon: Dm Quan Alarm Field Technician: kayla Anesthesiologist: joni Anesthesia: GET(General Endotracheal) Pre-op Diagnosis: intraarticular distal radius fx rt Post-op Diagnosis: same Procedure: ORIF distal radius Inf/Abcess present in the surg proc area at time of surgery?: No EBL: Minimal Complications: none
--- NOTE | 2017-10-25 09:52 | POSTANESTH ---
Post Anesthetic Evaluation Cardiovascular Status: Similar to Pre-Op Cond Respiratory Status: Normal, Stable Level of Consciousness/Mental Status: Can Participate in Eval Pain Control: Adequate, Prn Tx Ordered Nausea/Vomiting Control: Adequate, Prn Tx Ordered Complications Possibly Related to Anesthesia: None Noted
[2017-10-25] MEDS: fentaNYL 100 MCG/2 ML INJ IVP PRN ×2 (10:03→10:34)
[2017-10-25] MEDS ORDERED: HYDROCODONE/APAP 5/325 TAB ONE ×2 (10:05→12:08)
[2017-10-25] MEDS: HYDROCODONE/APAP 5/325 TAB PO PRN ×2 (10:06→12:13)
[2017-10-25] MEDS ORDERED: HYDROmorphONE/DILAUDID 1 MG/ML INJ ONE (10:06)
[2017-10-25] MEDS: HYDROmorphONE/DILAUDID 1 MG/ML INJ IVP PRN ×3 (10:30→11:11)
--- NOTE | 2017-10-25 11:39 | GOP ---
[f rep st] OPERATIVE REPORT DATE OF OPERATION: 10/25/2017 SURGEON: Dm Quan MD PROGRAMMING INTERN: Alvin Rodriguez, SALES AGENT, [facility]. ANESTHESIA: General. ANESTHESIOLOGIST: Dr. Almendarez. PREOPERATIVE DIAGNOSIS: Displaced intra-articular distal radius fracture right wrist. POSTOPERATIVE DIAGNOSIS: Displaced intra-articular distal radius fracture right wrist. PROCEDURE PERFORMED: Open reduction, internal fixation, distal radius fracture. FINDINGS: DESCRIPTION OF PROCEDURE: After appropriate informed consent was obtained, patient was taken to the operating room and placed supine on the operating table. Time-out was performed. Patient was identi fied. Correct site was identified. Dr. Almendarez administered general endotracheal tube anesthesia. T he right upper extremity was prepped and draped in usual sterile fashion. I exsanguinated the limb, inflated the tourniquet to 250 mmHg. Total tourniquet time was 37 minutes. I made a standard volar incision centered over the flexor carpi radialis tendon. Soft tissues were carefully dissected. The median nerve was retracted toward the ulnar side of the wrist. The radial artery was protected on t radial side of the wrist. The fracture was in multiple fragments. I was able to reduce the fract ure and held it in place with a dental pick. I placed a volar splint in place and then used compress ion followed by locking screws to reduce the fracture nicely. The radial styloid piece was brought b ack to the main part of the fracture with a compression screw as well. Wound was irrigated. Final i maging was obtained which showed satisfactory reduction of the fracture. The skin was closed with 2- 0 Vicryl and 3-0 Monocryl suture. Steri-Strips were applied. I instilled 15 mL of 0.5% Marcaine ruth in around the incision. Volar splint was applied. The patient was awakened from anesthesia, taken t o recovery room in satisfactory condition. There were no immediate intraoperative complications. Srinivas Rodriguez's assistance was required throughout the entire case. IMPLANTS USED: [employer] volar wrist plate. COMPLICATIONS: None. DRAINS: None. HISTORY: The patient is a 77-year-old female, who had a syncopal episode about a week ago and sustai brook an intra-articular distal radius fracture. She was splinted, reduced in the emergency department and admitted to the hospital for syncopal workup that was thought to be related to missing hypothyro id medicines. She was restarted on that and had no further syncopal episodes and she was brought to the operating room for definitive fixation of her fracture. /[id number]/MODL
[2017-10-25 12:03] VITALS: BP 159/75
== END 2017-10-25 12:39 | disposition home or self-care (01) ==
LOC: FSGY 06:49
PROVIDERS: ATTEND Orthopaedic Surgery
PROC: 0PSH04Z Reposition Right Radius with Internal Fixation Device, Open Approach (ICD-10-PCS; principal; 2017-10-25 08:30)
DX: S52.571A Other intraarticular fracture of lower end of right radius, initial encounter for closed fracture (principal); W19.XXXA Unspecified fall, initial encounter; F03.90 Unspecified dementia, unspecified severity, without behavioral disturbance, psychotic disturbance, mood disturbance, and anxiety; E11.9 Type 2 diabetes mellitus without complications; E03.9 Hypothyroidism, unspecified; I25.10 Atherosclerotic heart disease of native coronary artery without angina pectoris
CPT/HCPCS: C1713; J0690; J1100; J1170; J2405; J2704; J3010